=== PATIENT | male | born 1990 | race Caucasian/White ===

== ENCOUNTER 2017-05-15 12:12 | Emergency (ER) | payer OTHER ==
[2017-05-15 12:18] VITALS: RESP 16; TEMP 98.6
[2017-05-15] MEDS ORDERED: HALOPERIDOL LACT 5 MG/ML INJ IVP ONE (13:08)
[2017-05-15] MEDS ORDERED: DIAZEPAM 10 MG/2 ML SYR IVP ONE (13:08)
[2017-05-15] MEDS ORDERED: NS 1,000 ML IV ONE (13:08)
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
[2017-05-15 14:00] LABS: PLATELET COUNT 175 10^3/uL (150-400)
[2017-05-15 14:02] VITALS: O2SAT 95
[2017-05-15 15:01] VITALS: BP 125/81; PULSE 62
== END 2017-05-15 14:59 | disposition home or self-care (01) ==
DX: S06.0X0A Concussion without loss of consciousness, initial encounter (principal); S16.1XXA Strain of muscle, fascia and tendon at neck level, initial encounter; S39.012A Strain of muscle, fascia and tendon of lower back, initial encounter; E86.9 Volume depletion, unspecified; V49.49XA Driver injured in collision with other motor vehicles in traffic accident, initial encounter; Y92.410 Unspecified street and highway as the place of occurrence of the external cause; Y99.8 Other external cause status; Y93.89 Activity, other specified
CPT/HCPCS: 96374; J1630; J3360